=== PATIENT | male | born 1990 | race Caucasian/White ===

== ENCOUNTER 2025-07-07 15:22 | Outpatient (CLI) | payer BC, SELFPAY ==
--- NOTE | 2025-07-07 16:00 | CRLHL7_ITS ---
For Patients: As a result of the Century Cures Act, medical imaging exams and procedure reports are released immediately into your electronic medical record. You may view this report before your referring provider. If you have questions, please contact your health care provider. Indication: LOWER ABD PAIN Technique: CT Abdomen/Pelvis 77CC ISOVUE 370 intravenous contrast Please note that all CT scans at this facility use dose modulation, iterative reconstruction, and/or weight-based dosing when appropriate to reduce radiation dose to as low as reasonably achievable. Comparison: None Findings: The appendix is within normal limits. No hiatal hernia. No gastric outlet obstruction. Small bowel loops appear normal. No evidence of inflammatory bowel disease. Wall thickening of the sigmoid colon is present within the deep mid pelvis. Slight adjacent inflammation noted. No free air or free fluid. No abscess. Moderate stool burden in the colon. Bladder normal. No evidence of fistula. No adenopathy. Pancreas normal. Normal spleen. Adrenal glands normal. Normal kidneys. Liver and gallbladder unremarkable. Lung bases clear. No fracture. No abdominal wall hernia. Impression: Chronic sigmoid diverticulitis involving a segment of sigmoid colon measuring approximately 3.9 cm in length. No bowel obstruction or evidence of abscess/fistula. Please note that all CT scans at this facility use dose modulation, iterative reconstruction, and/or weight-based dosing when appropriate to reduce radiation dose to as low as reasonably achievable. Dictated by Clay Abernathy MD @ 07/10/2025 1:14:01 PM (Electronically Signed)
== END 2025-07-07 15:23 | disposition home or self-care (01) ==
LOC: CT 15:25
DX: R10.30 Lower abdominal pain, unspecified (principal); K57.32 Diverticulitis of large intestine without perforation or abscess without bleeding; R19.4 Change in bowel habit; R14.0 Abdominal distension (gaseous); Z87.19 Personal history of other diseases of the digestive system
CPT/HCPCS: 74177; Q9967